=== PATIENT | female | born 1945 | race Caucasian/White ===

== ENCOUNTER → 2016-09-01 | Outpatient (CLI) | payer MEDICARE, OTHER ==
--- NOTE | 2016-09-01 13:24 | DI ---
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 Anterior and posterior planar whole-body and spot images were obtained. FINDINGS: The scan demonstrates the expected normal biodistribution for the radiotracer. There is probable degenerative uptake seen in left hip and facets of lower lumbosacral spine as well as the acromioclavicular joints and feet. There is no abnormal radiotracer uptake to suggest bony metastasis. IMPRESSION: 1. No evidence of metastatic disease to the skeleton. 2. Mild polyarthritis and degenerative spondylitis. .
== END ==
LOC: IMA 10:05
PROVIDERS: ATTEND Internal Medicine Hematology & Oncology
DX: C34.32 Malignant neoplasm of lower lobe, left bronchus or lung (principal); M46.97 Unspecified inflammatory spondylopathy, lumbosacral region; R94.8 Abnormal results of function studies of other organs and systems
CPT/HCPCS: 78306; A9503